=== PATIENT | female | born 1935 | race African-American/Black ===

== ENCOUNTER 2021-09-23 14:27 | Inpatient (IN) | payer MEDICARE, BC ==
[~2021-09-23] VITALS: Ht 157.5 cm; Wt 47.1 kg
[~2021-09-23 14:27] MED LIST: APIX2.5T MT; DILT30TA38 MT; LEVO250T43 MT
[2021-09-23 15:23] LABS: BASOPHILS % 0.7 % (0.0-2.0); EOSINOPHILS % 2.9 % (0.0-5.0); HEMOGLOBIN. 10.8 g/dL (12.0-16.0); LYMPHOCYTES % 10.9 % (20.0-50.0); MEAN CORPUSCULAR HEMOGLOBIN 32.1 pg (28.0-32.0); MEAN CORPUSCULAR VOLUME 95.5 fL (81.0-99.0); MEAN PLATELET VOLUME 9.9 fl (7.4-10.4); NEUTROPHILS % 75.5 % (40.0-76.0); PLATELET 206 x1000/uL (130-400); RED BLOOD CELL COUNT 3.36 mill/uL (4.2-5.4); RED CELL DISTRIBUTION WIDTH 14.9 % (11.6-14.6)
[2021-09-23 15:46] LABS: CHLORIDE 93 mEq/L (98-107)
[2021-09-23] MEDS ORDERED: ONDANSETRON HCL 4MG/2ML INJ IV PRN (21:45)
[2021-09-23] MEDS ORDERED: BISACODYL 10MG SUPP PR PRN (22:00)
[2021-09-23] MEDS ORDERED: BISACODYL 5MG TABLET PO PRN (22:00)
[2021-09-23] MEDS: DOCUSATE SODIUM 100MG CAPSULE PO SCH (22:48)
[2021-09-23] MEDS: ACETAMINOPHEN 325MG TABLET PO PRN (22:49)
[2021-09-23 23:30] VITALS: BP 130/87
[2021-09-24] VITALS (9 sets, daily range): BP systolic 115–139; BP diastolic 45–90
[2021-09-24] MEDS: DILTIAZEM HCL 30MG TABLET PO SCH ×4 (00:40→17:00)
[2021-09-24] MEDS: APIXABAN 2.5 MG TABLET PO SCH ×3 (00:40→17:00)
[2021-09-24] MEDS: DIPHENHYDRAMINE 25MG CAPSULE PO PRN ×3 (01:21→20:52)
[2021-09-24 02:59] LABS: HEPATITIS B SURFACE ANTIGEN NEGATIVE
[2021-09-24] MEDS: DOCUSATE SODIUM 100MG CAPSULE PO SCH ×2 (09:04→17:00)
[2021-09-24] MEDS: ACETAMINOPHEN 325MG TABLET PO PRN (09:05)
[2021-09-24 09:27] LABS: CREATINE KINASE MB FRACTION 2.5 ng/mL (0.5-3.6)
[2021-09-24] MEDS ORDERED: DEXTROSE 50% WATER 50ML SYRINGE IV PRN (21:15)
[2021-09-25] VITALS: BP 111/57
[2021-09-25] MEDS: ACETAMINOPHEN 325MG TABLET PO PRN ×2 (02:12→11:10)
[2021-09-25 04:00] VITALS: BP 128/80
[2021-09-25 06:18] LABS: HEMATOCRIT. 29.6 % (36.0-48.0); MEAN CORPUSCULAR VOLUME 94.4 fL (81.0-99.0); MEAN PLATELET VOLUME 9.8 fl (7.4-10.4); PLATELET 226 x1000/uL (130-400); RED BLOOD CELL COUNT 3.14 mill/uL (4.2-5.4); RED CELL DISTRIBUTION WIDTH 14.8 % (11.6-14.6)
[2021-09-25 06:22] LABS: INR 1.2; PROTHROMBIN TIME 12.5 sec (9.6-11.0)
[2021-09-25 06:43] LABS: CHLORIDE 95 mEq/L (98-107)
[2021-09-25] MEDS: INSULIN LISPRO 100 UNITS/ML SUBCUT SCH ×4 (07:30→21:00)
[2021-09-25] MEDS: BLOOD SUGAR DIAGNOSTIC STRIP TEST SCH ×4 (07:30→21:37)
[2021-09-25 08:00] VITALS: BP 128/76
[2021-09-25] MEDS: DILTIAZEM HCL 30MG TABLET PO SCH ×3 (08:58→17:54)
[2021-09-25] MEDS: DOCUSATE SODIUM 100MG CAPSULE PO SCH ×2 (08:59→17:00)
[2021-09-25] MEDS: APIXABAN 2.5 MG TABLET PO SCH ×2 (08:59→17:00)
[2021-09-25 12:00] VITALS: BP 112/70
[2021-09-25] MEDS ORDERED: CEFAZOLIN 1000MG PREMIX 50 ML IV NR (12:00)
[2021-09-25 12:54] LABS: PLATELET ESTIMATE NORMAL
[2021-09-25 16:00] VITALS: BP 115/57
[2021-09-25 20:00] VITALS: BP 121/50
[2021-09-26] VITALS (7 sets, daily range): BP systolic 122–144; BP diastolic 69–88
[2021-09-26] MEDS: DIPHENHYDRAMINE 25MG CAPSULE PO PRN (00:16)
[2021-09-26 06:19] LABS: BASOPHILS % 0.5 % (0.0-2.0); EOSINOPHILS % 2.3 % (0.0-5.0); HEMATOCRIT. 32.8 % (36.0-48.0); LYMPHOCYTES % 11.8 % (20.0-50.0); MEAN CORPUSCULAR HEMOGLOBIN 32.1 pg (28.0-32.0); MEAN CORPUSCULAR VOLUME 96.1 fL (81.0-99.0); MEAN PLATELET VOLUME 9.5 fl (7.4-10.4); MONOCYTES % 10.1 % (2.0-8.0); NEUTROPHILS % 75.3 % (40.0-76.0); PLATELET 235 x1000/uL (130-400); RED BLOOD CELL COUNT 3.41 mill/uL (4.2-5.4); RED CELL DISTRIBUTION WIDTH 14.6 % (11.6-14.6)
[2021-09-26 06:20] LABS: INR 1.2; PROTHROMBIN TIME 12.5 sec (9.6-11.0)
[2021-09-26 07:27] LABS: CHLORIDE 94 mEq/L (98-107)
[2021-09-26] MEDS: BLOOD SUGAR DIAGNOSTIC STRIP TEST SCH ×4 (07:30→21:09)
[2021-09-26] MEDS: INSULIN LISPRO 100 UNITS/ML SUBCUT SCH ×4 (08:00→21:00)
[2021-09-26] MEDS ORDERED: LIDOCAINE HCL/PF 1% 10 MG/ML 5ML VIAL ONE (08:27)
[2021-09-26] MEDS: APIXABAN 2.5 MG TABLET PO SCH ×2 (09:00→17:00)
[2021-09-26] MEDS: DOCUSATE SODIUM 100MG CAPSULE PO SCH ×2 (09:00→17:00)
[2021-09-26] MEDS: DILTIAZEM HCL 30MG TABLET PO SCH ×3 (09:00→17:00)
[2021-09-26] MEDS: DEXT 5%/0.45% NACL 1000ML 1,000 ML IV SCH (20:58)
[2021-09-27] VITALS: BP 135/90
[2021-09-27 04:00] VITALS: BP 134/76
[2021-09-27] MEDS: DIPHENHYDRAMINE 25MG CAPSULE PO PRN (04:55)
[2021-09-27 06:31] LABS: HEMATOCRIT 32.3 % (36.0-48.0); HEMOGLOBIN 10.9 g/dL (12.0-16.0); MEAN CORPUSCULAR HEMOGLOBIN 32.1 pg (28.0-32.0); MEAN CORPUSCULAR VOLUME 94.8 fL (81.0-99.0); PLATELET 244 x1000/uL (130-400); RED BLOOD CELL COUNT 3.41 mill/uL (4.2-5.4); RED CELL DISTRIBUTION WIDTH 14.6 % (11.6-14.6)
[2021-09-27] MEDS: BLOOD SUGAR DIAGNOSTIC STRIP TEST SCH ×4 (06:32→20:52)
[2021-09-27 07:30] LABS: CHLORIDE 95 mEq/L (98-107)
[2021-09-27] MEDS: INSULIN LISPRO 100 UNITS/ML SUBCUT SCH ×4 (07:50→20:52)
[2021-09-27 08:00] VITALS: BP 135/72
[2021-09-27] MEDS: DOCUSATE SODIUM 100MG CAPSULE PO SCH ×2 (09:00→17:00)
[2021-09-27] MEDS: APIXABAN 2.5 MG TABLET PO SCH ×2 (09:00→17:00)
[2021-09-27] MEDS: DILTIAZEM HCL 30MG TABLET PO SCH ×3 (09:00→17:00)
[2021-09-27 12:00] VITALS: BP 125/72
[2021-09-27 16:00] VITALS: BP 159/88
[2021-09-27] MEDS: DIPHENHYDRAMINE 50MG/ML VIAL IV PRN (18:05)
[2021-09-27 20:00] VITALS: BP 138/69
[2021-09-27] MEDS: DEXT 5%/0.45% NACL 1000ML 1,000 ML IV SCH (20:01)
[2021-09-28] VITALS: BP 102/65
[2021-09-28] MEDS: DIPHENHYDRAMINE 50MG/ML VIAL IV PRN ×2 (00:52→10:40)
[2021-09-28 04:00] VITALS: BP 157/99
[2021-09-28] MEDS: DEXT 5%/0.45% NACL 1000ML 1,000 ML IV SCH ×2 (05:19→21:49)
[2021-09-28] MEDS: BLOOD SUGAR DIAGNOSTIC STRIP TEST SCH ×3 (06:20→20:10)
[2021-09-28] MEDS: INSULIN LISPRO 100 UNITS/ML SUBCUT SCH ×3 (07:50→20:10)
[2021-09-28 08:00] VITALS: BP 139/170
[2021-09-28] MEDS: DOCUSATE SODIUM 100MG CAPSULE PO SCH (08:03)
[2021-09-28] MEDS: APIXABAN 2.5 MG TABLET PO SCH ×2 (09:00→18:25)
[2021-09-28] MEDS: DILTIAZEM HCL 30MG TABLET PO SCH ×5 (09:00→18:25)
[2021-09-28 12:00] VITALS: BP 146/4
[2021-09-28] MEDS ORDERED: INSLIS SUBCUT (15:14)
[2021-09-28] MEDS ORDERED: DIATR MEGLU/DIATRIZOATE SOLN 30ML ONE (15:24)
[2021-09-28 16:00] VITALS: BP 176/84
[2021-09-28 20:00] VITALS: BP 109/70
[2021-09-29] VITALS: BP 155/72
[2021-09-29 06:28] LABS: HEPATITIS B SURFACE ANTIGEN NEGATIVE
[2021-09-29] MEDS: DILTIAZEM HCL 30MG TABLET PO SCH ×3 (09:00→16:07)
[2021-09-29] MEDS: APIXABAN 2.5 MG TABLET PO SCH ×2 (09:00→16:08)
[2021-09-29] MEDS: DOCUSATE SODIUM 100MG CAPSULE PO SCH ×2 (09:00→16:08)
[2021-09-29 12:30] VITALS: BP 156/81
[2021-09-29] MEDS: INSULIN LISPRO 100 UNITS/ML SUBCUT SCH ×3 (12:50→20:49)
[2021-09-29] MEDS: BLOOD SUGAR DIAGNOSTIC STRIP TEST SCH ×3 (12:59→20:49)
[2021-09-29] MEDS: DEXT 5%/0.45% NACL 1000ML 1,000 ML IV SCH (16:08)
[2021-09-29 16:15] VITALS: BP 156/57
[2021-09-29] MEDS: DOCUSATE SODIUM SUGAR FREE 100MG/10ML UDC GT SCH (17:30)
[2021-09-29 19:45] VITALS: BP 116/66
[2021-09-29] MEDS ORDERED: SENNOSIDES 8.6MG TABLET GT PRN (21:00)
[2021-09-30] VITALS: BP 141/69
[2021-09-30] MEDS: DIPHENHYDRAMINE 50MG/ML VIAL IV PRN ×2 (02:51→11:42)
[2021-09-30 03:30] VITALS: BP 131/72
[2021-09-30] MEDS: BLOOD SUGAR DIAGNOSTIC STRIP TEST SCH ×2 (06:30→13:15)
[2021-09-30] MEDS: INSULIN LISPRO 100 UNITS/ML SUBCUT SCH ×2 (07:50→12:50)
[2021-09-30 08:35] VITALS: BP 149/74
[2021-09-30] MEDS: DOCUSATE SODIUM 100MG CAPSULE PO SCH (09:00)
[2021-09-30] MEDS: DILTIAZEM HCL 30MG TABLET PO SCH ×2 (09:14→13:03)
[2021-09-30] MEDS: DEXT 5%/0.45% NACL 1000ML 1,000 ML IV SCH (09:15)
[2021-09-30] MEDS: APIXABAN 2.5 MG TABLET PO SCH (09:15)
[2021-09-30] MEDS: DOCUSATE SODIUM SUGAR FREE 100MG/10ML UDC GT SCH (09:29)
[2021-09-30 12:00] VITALS: BP 146/64
[2021-09-30] MEDS ORDERED: LACTULOSE 20G/30ML UDC GT NR (12:45)
[2021-09-30] MEDS ORDERED: METOCLOPRAMIDE HCL 10MG/2ML VIAL IV SCH (13:00)
[2021-09-30 15:16] VITALS: BP 139/67
[2021-09-30 15:52] VITALS: BP 139/67
[2021-09-30] MEDS ORDERED: METO5SOL19 PO (15:55)
[2021-09-30] MEDS ORDERED: METO5TAB86 PO (15:59)
[2021-09-30] MEDS ORDERED: METO5TAB86 GT (16:04)
== END 2021-09-30 17:51 | DRG 291 ==
LOC: ER 14:27 → EDBEDREQ 15:34 → 5EST 18:21 → EDBEDREQTM 18:26 → EDBEDREQ 18:26 → ENRESERV 22:19 → 6WST 09-26 12:01
PROVIDERS: ADMIT Family Medicine; ATTEND Family Medicine
PROC: 5A1D70Z Performance of Urinary Filtration, Intermittent, Less than 6 Hours Per Day (ICD-10-PCS; 2021-09-24)
PROC: 02HV33Z Insertion of Infusion Device into Superior Vena Cava, Percutaneous Approach (ICD-10-PCS; principal; 2021-09-26)
PROC: B548ZZA Ultrasonography of Superior Vena Cava, Guidance (ICD-10-PCS; 2021-09-26)
PROC: 0DP6XUZ Removal of Feeding Device from Stomach, External Approach (ICD-10-PCS; 2021-09-30)
PROC: 0DH63UZ Insertion of Feeding Device into Stomach, Percutaneous Approach (ICD-10-PCS; 2021-09-30)
DX: I13.2 Hypertensive heart and chronic kidney disease with heart failure and with stage 5 chronic kidney disease, or end stage renal disease (principal); I50.33 Acute on chronic diastolic (congestive) heart failure; N18.6 End stage renal disease; E46 Unspecified protein-calorie malnutrition; I47.1 Supraventricular tachycardia; Z68.1 Body mass index [BMI] 19.9 or less, adult; I48.20 Chronic atrial fibrillation, unspecified; E87.1 Hypo-osmolality and hyponatremia; T86.12 Kidney transplant failure; K22.0 Achalasia of cardia; R62.7 Adult failure to thrive; D63.1 Anemia in chronic kidney disease; K70.31 Alcoholic cirrhosis of liver with ascites; R13.12 Dysphagia, oropharyngeal phase; E11.22 Type 2 diabetes mellitus with diabetic chronic kidney disease; I25.10 Atherosclerotic heart disease of native coronary artery without angina pectoris; K31.89 Other diseases of stomach and duodenum; E55.9 Vitamin D deficiency, unspecified; R79.89 Other specified abnormal findings of blood chemistry; F32.A Depression, unspecified; E78.5 Hyperlipidemia, unspecified; F03.90 Unspecified dementia, unspecified severity, without behavioral disturbance, psychotic disturbance, mood disturbance, and anxiety; Z20.822 Contact with and (suspected) exposure to COVID-19; Z90.710 Acquired absence of both cervix and uterus; Z79.01 Long term (current) use of anticoagulants; Z88.0 Allergy status to penicillin; Z88.8 Allergy status to other drugs, medicaments and biological substances; Z79.899 Other long term (current) drug therapy; Z99.2 Dependence on renal dialysis; Z91.15 Patient's noncompliance with renal dialysis; Z90.49 Acquired absence of other specified parts of digestive tract; Z93.1 Gastrostomy status
CPT/HCPCS: 36415; 36573; 71045; 74018; 76705; 80053; 82550; 82553; 82962; 83036; 83880; 84484; 85025; 85027; 86705; 86709; 86803; 87340; 87426; 92610; 93005; 99291; C1725; C1893; J1200; J2765; J3490; Q0163; Q9963

== ENCOUNTER 2021-10-18 13:58 | Inpatient (IN) | payer MEDICARE, BC ==
[~2021-10-18] VITALS: Ht 167.6 cm; Wt 50.3 kg
[~2021-10-18 13:58] MED LIST changes: +INSLIS SUBCUT; -LEVO250T43 MT; +METO5TAB86 GT
[2021-10-18] MEDS ORDERED: SODIUM CHLORIDE 0.9% 500 ML IV ONE (14:30)
[2021-10-18 14:55] LABS: BASOPHILS % 0.4 % (0.0-2.0); EOSINOPHILS % 1.2 % (0.0-5.0); HEMOGLOBIN. 11.5 g/dL (12.0-16.0); LYMPHOCYTES % 7.4 % (20.0-50.0); MEAN CORPUSCULAR HEMOGLOBIN 30.8 pg (28.0-32.0); MEAN PLATELET VOLUME 9.2 fl (7.4-10.4); MONOCYTES % 8.2 % (2.0-8.0); NEUTROPHILS % 82.8 % (40.0-76.0); PLATELET 269 x1000/uL (130-400); RED BLOOD CELL COUNT 3.72 mill/uL (4.2-5.4); RED CELL DISTRIBUTION WIDTH 14.3 % (11.6-14.6)
[2021-10-18] MEDS ORDERED: MORPHINE SULFATE 2 MG/ML CPJ (NOT FOR IM USE) IV ONE (15:00)
[2021-10-18 15:04] LABS: CHLORIDE 79 mEq/L (98-107)
[2021-10-18 15:06] LABS: INR 1.2; PROTHROMBIN TIME 12.7 sec (9.6-11.0)
[2021-10-18 15:29] LABS: CLARITY URINE CLOUDY (CLEAR); COLOR URINE DARK YELLOW (YELLOW); KETONES URINE NEGATIVE (NEGATIVE); LEUKOCYTE ESTERASE URINE 3+ (NEGATIVE); NITRITE URINE NEGATIVE (NEGATIVE); OCCULT BLOOD URINE TRACE (NEGATIVE); PROTEIN URINE 3+ (NEGATIVE); SPECIFIC GRAVITY URINE 1.016 (1.005-1.030); UROBILINOGEN URINE 0.2 E.U./dL (0.2-1.0)
[2021-10-18] MEDS ORDERED: LEVOFLOXACIN 500MG PREMIX 100 ML IV NR (15:30)
[2021-10-18] MEDS ORDERED: SODIUM POLYSTYRENE SULFONATE 15 G/60 ML BOT PO NR (16:15)
[2021-10-18] MEDS ORDERED: DEXTROSE 50% WATER 50ML SYRINGE IV NR (16:15)
[2021-10-18] MEDS ORDERED: INSULIN REGULAR (HUMULIN R) 300UNITS/3ML VIAL IV NR (16:15)
[2021-10-18] MEDS ORDERED: ACETAMINOPHEN 650MG/20.3ML UDC GT NR (17:45)
[2021-10-18] MEDS ORDERED: ACETAMINOPHEN 325MG TABLET PO ONE (17:45)
[2021-10-18] MEDS ORDERED: CLONIDINE 0.1MG TABLET PO PRN (19:30)
[2021-10-18] MEDS ORDERED: ACETAMINOPHEN 650MG/20.3ML UDC GT PRN (19:30)
[2021-10-18] MEDS ORDERED: DILTIAZEM HCL 30MG TABLET GT SCH (19:30)
[2021-10-18] MEDS ORDERED: ONDANSETRON HCL 4MG/2ML INJ IV PRN (19:30)
[2021-10-18] MEDS ORDERED: ONDANSETRON HCL 4MG TABLET PO NR (19:30)
[2021-10-18] MEDS ORDERED: CEFTRIAXONE 1 G PREMIX 50 ML IV NR (20:00)
[2021-10-18] MEDS: METOCLOPRAMIDE HCL 5MG TABLET GT SCH (20:30)
[2021-10-18] MEDS: MORPHINE SULFATE 2 MG/ML CPJ (NOT FOR IM USE) IV PRN (21:01)
[2021-10-18 23:27] VITALS: BP 133/70
[2021-10-19] VITALS: BP 133/70
[2021-10-19] MEDS ORDERED: DIPHENHYDRAMINE 12.5MG/5ML UDC GT PRN (01:45)
[2021-10-19 01:54] LABS: CREATINE KINASE MB FRACTION 2.1 ng/mL (0.5-3.6)
[2021-10-19] MEDS: MORPHINE SULFATE 2 MG/ML CPJ (NOT FOR IM USE) IV PRN (03:58)
[2021-10-19 04:00] VITALS: BP 135/89
[2021-10-19 06:43] LABS: BASOPHILS % 0.6 % (0.0-2.0); EOSINOPHILS % 3.1 % (0.0-5.0); HEMATOCRIT. 30.5 % (36.0-48.0); HEMOGLOBIN. 10.1 g/dL (12.0-16.0); LYMPHOCYTES % 8.1 % (20.0-50.0); MEAN CORPUSCULAR VOLUME 93.8 fL (81.0-99.0); MONOCYTES % 10.9 % (2.0-8.0); NEUTROPHILS % 77.3 % (40.0-76.0); PLATELET 255 x1000/uL (130-400); RED BLOOD CELL COUNT 3.25 mill/uL (4.2-5.4); RED CELL DISTRIBUTION WIDTH 14.3 % (11.6-14.6)
[2021-10-19 06:44] LABS: CHLORIDE 82 mEq/L (98-107)
[2021-10-19 06:56] LABS: CREATINE KINASE 55 IU/L (26-192); CREATINE KINASE MB FRACTION 2.5 ng/mL (0.5-3.6); HDL CHOLESTEROL 34 mg/dL (40-59); LDL CHOLESTEROL 41 mg/dL (5-100)
[2021-10-19 08:00] VITALS: BP 132/67
[2021-10-19] MEDS: METOCLOPRAMIDE HCL 5MG TABLET GT SCH ×3 (10:06→17:00)
[2021-10-19] MEDS: APIXABAN 2.5 MG TABLET GT SCH ×2 (10:06→17:00)
[2021-10-19] MEDS: METOPROLOL TARTRATE 25MG TABLET PO SCH ×2 (10:07→21:14)
[2021-10-19 12:00] VITALS: BP 131/65
[2021-10-19] MEDS ORDERED: NALOXONE HCL 0.4MG/ML VIAL IV PRN (13:30)
[2021-10-19 16:00] VITALS: BP 110/67
[2021-10-19 20:00] VITALS: BP 122/62
[2021-10-19] MEDS: CEFTRIAXONE 1,000 MG in DEXTROSE 5% WATER 50 ML IV SCH (21:14)
[2021-10-20] VITALS: BP 105/65
[2021-10-20] MEDS: MORPHINE SULFATE 2 MG/ML CPJ (NOT FOR IM USE) IV PRN ×2 (01:34→21:50)
[2021-10-20] MEDS: DIPHENHYDRAMINE 12.5MG/5ML UDC GT PRN ×2 (02:35→19:02)
[2021-10-20 04:00] VITALS: BP 106/57
[2021-10-20 08:00] VITALS: BP 141/81
[2021-10-20] MEDS: METOPROLOL TARTRATE 25MG TABLET PO SCH ×2 (09:53→21:00)
[2021-10-20] MEDS: METOCLOPRAMIDE HCL 5MG TABLET GT SCH ×3 (09:53→19:02)
[2021-10-20 12:00] VITALS: BP 117/63
[2021-10-20] MEDS ORDERED: APIXABAN 2.5 MG TABLET PO SCH (13:00)
[2021-10-20] MEDS: LORATADINE 10MG TABLET PO SCH (13:00)
[2021-10-20] MEDS: AMMONIUM LACTATE 12% LOTION 240ML TOP SCH (14:57)
[2021-10-20 16:00] VITALS: BP 126/57
[2021-10-20 17:55] LABS: BASOPHILS % 0.6 % (0.0-2.0); EOSINOPHILS % 3.7 % (0.0-5.0); HEMATOCRIT. 34.7 % (36.0-48.0); HEMOGLOBIN. 10.9 g/dL (12.0-16.0); LYMPHOCYTES % 8.4 % (20.0-50.0); MEAN CORPUSCULAR HEMOGLOBIN 30.8 pg (28.0-32.0); MEAN PLATELET VOLUME 8.6 fl (7.4-10.4); NEUTROPHILS % 76.3 % (40.0-76.0); PLATELET 267 x1000/uL (130-400); RED BLOOD CELL COUNT 3.54 mill/uL (4.2-5.4); RED CELL DISTRIBUTION WIDTH 15.2 % (11.6-14.6)
[2021-10-20 18:40] LABS: CHLORIDE 89 mEq/L (98-107)
[2021-10-20 20:00] VITALS: BP 119/56
[2021-10-20] MEDS: CEFTRIAXONE 1,000 MG in DEXTROSE 5% WATER 50 ML IV SCH (20:55)
[2021-10-21] VITALS: BP 110/58
[2021-10-21] MEDS: DIPHENHYDRAMINE 12.5MG/5ML UDC GT PRN ×2 (00:29→14:55)
[2021-10-21] MEDS: MORPHINE SULFATE 2 MG/ML CPJ (NOT FOR IM USE) IV PRN ×2 (02:35→21:24)
[2021-10-21 04:00] VITALS: BP 119/54
[2021-10-21 06:51] LABS: BASOPHILS % 0.8 % (0.0-2.0); EOSINOPHILS % 3.9 % (0.0-5.0); HEMATOCRIT. 31.8 % (36.0-48.0); HEMOGLOBIN. 10.3 g/dL (12.0-16.0); LYMPHOCYTES % 9.4 % (20.0-50.0); MEAN CORPUSCULAR HEMOGLOBIN 31.2 pg (28.0-32.0); MEAN PLATELET VOLUME 8.5 fl (7.4-10.4); MONOCYTES % 9.8 % (2.0-8.0); NEUTROPHILS % 76.1 % (40.0-76.0); PLATELET 291 x1000/uL (130-400); RED BLOOD CELL COUNT 3.31 mill/uL (4.2-5.4); RED CELL DISTRIBUTION WIDTH 14.6 % (11.6-14.6)
[2021-10-21 08:00] VITALS: BP 121/56
[2021-10-21] MEDS: LORATADINE 10MG TABLET PO SCH (08:53)
[2021-10-21] MEDS: METOPROLOL TARTRATE 25MG TABLET PO SCH ×2 (08:54→21:00)
[2021-10-21] MEDS: METOCLOPRAMIDE HCL 5MG TABLET GT SCH ×3 (08:54→16:10)
[2021-10-21] MEDS: AMMONIUM LACTATE 12% LOTION 240ML TOP SCH ×2 (08:55→16:10)
[2021-10-21 11:48] VITALS: BP 121/73
[2021-10-21 16:00] VITALS: BP 101/63
[2021-10-21 20:00] VITALS: BP 116/70
[2021-10-21] MEDS: SODIUM CHLORIDE 0.45% 1,000 ML IV SCH (21:23)
[2021-10-21] MEDS: CEFTRIAXONE 1,000 MG in DEXTROSE 5% WATER 50 ML IV SCH (21:23)
[2021-10-22] VITALS: BP 128/71
[2021-10-22 04:00] VITALS: BP 130/68
[2021-10-22 06:43] LABS: BASOPHILS % 0.6 % (0.0-2.0); EOSINOPHILS % 2.8 % (0.0-5.0); HEMATOCRIT. 33.1 % (36.0-48.0); HEMOGLOBIN. 10.6 g/dL (12.0-16.0); LYMPHOCYTES % 9.8 % (20.0-50.0); MEAN CORPUSCULAR VOLUME 96.4 fL (81.0-99.0); MEAN PLATELET VOLUME 8.1 fl (7.4-10.4); NEUTROPHILS % 78.8 % (40.0-76.0); PLATELET 335 x1000/uL (130-400); RED BLOOD CELL COUNT 3.43 mill/uL (4.2-5.4); RED CELL DISTRIBUTION WIDTH 15.2 % (11.6-14.6)
[2021-10-22 06:55] LABS: INR 1.2; PROTHROMBIN TIME 12.5 sec (9.6-11.0)
[2021-10-22] MEDS ORDERED: ALBUMIN HUMAN 25GM/100ML (25%) IV SCH (07:00)
[2021-10-22 08:00] VITALS: BP 112/70
[2021-10-22] MEDS: AMMONIUM LACTATE 12% LOTION 240ML TOP SCH ×2 (09:12→16:32)
[2021-10-22] MEDS ORDERED: LIDOCAINE HCL 1% 30ML VIAL (10MG/ML) ONE (10:21)
[2021-10-22] MEDS: LORATADINE 10MG TABLET PO SCH (12:59)
[2021-10-22] MEDS: METOCLOPRAMIDE HCL 5MG TABLET GT SCH ×3 (12:59→16:32)
[2021-10-22] MEDS: METOPROLOL TARTRATE 25MG TABLET PO SCH ×2 (13:00→21:41)
[2021-10-22 16:00] VITALS: BP 125/62
[2021-10-22] MEDS ORDERED: FOLI0.8T23 PO (16:44)
[2021-10-22] MEDS ORDERED: MIRT-89 PO (16:44)
[2021-10-22] MEDS ORDERED: CARV3.1242 PO (16:44)
[2021-10-22] MEDS: DIPHENHYDRAMINE 12.5MG/5ML UDC GT PRN (17:44)
[2021-10-22 20:00] VITALS: BP 130/64
[2021-10-22] MEDS: SODIUM CHLORIDE 0.45% 1,000 ML IV SCH (20:45)
[2021-10-22] MEDS: CEFTRIAXONE 1,000 MG in DEXTROSE 5% WATER 50 ML IV SCH (21:41)
[2021-10-22] MEDS: MORPHINE SULFATE 2 MG/ML CPJ (NOT FOR IM USE) IV PRN (21:42)
[2021-10-23] VITALS: BP 122/75
[2021-10-23 04:00] VITALS: BP 118/55
[2021-10-23 06:34] LABS: BASOPHILS % 0.8 % (0.0-2.0); EOSINOPHILS % 2.1 % (0.0-5.0); HEMATOCRIT. 30.9 % (36.0-48.0); HEMOGLOBIN. 10.1 g/dL (12.0-16.0); LYMPHOCYTES % 9.3 % (20.0-50.0); MEAN CORPUSCULAR HEMOGLOBIN 30.8 pg (28.0-32.0); MEAN CORPUSCULAR VOLUME 94.6 fL (81.0-99.0); MEAN PLATELET VOLUME 8.4 fl (7.4-10.4); MONOCYTES % 11.9 % (2.0-8.0); NEUTROPHILS % 75.9 % (40.0-76.0); PLATELET 272 x1000/uL (130-400); RED BLOOD CELL COUNT 3.27 mill/uL (4.2-5.4); RED CELL DISTRIBUTION WIDTH 14.8 % (11.6-14.6)
[2021-10-23 08:00] VITALS: BP 116/67
[2021-10-23] MEDS: LORATADINE 10MG TABLET PO SCH (08:04)
[2021-10-23] MEDS: AMMONIUM LACTATE 12% LOTION 240ML TOP SCH ×2 (08:04→16:31)
[2021-10-23] MEDS: METOCLOPRAMIDE HCL 5MG TABLET GT SCH ×3 (08:04→16:33)
[2021-10-23] MEDS: METOPROLOL TARTRATE 25MG TABLET PO SCH ×2 (08:05→21:02)
[2021-10-23] MEDS: APIXABAN 2.5 MG TABLET GT SCH ×3 (09:00→16:33)
[2021-10-23] MEDS: DIPHENHYDRAMINE 12.5MG/5ML UDC GT PRN ×2 (10:07→21:08)
[2021-10-23 12:00] VITALS: BP 132/55
[2021-10-23 16:00] VITALS: BP 157/82
[2021-10-23] MEDS: SODIUM CHLORIDE 0.45% 1,000 ML IV SCH (17:43)
[2021-10-23 20:00] VITALS: BP 168/70
[2021-10-23] MEDS: CEFTRIAXONE 1,000 MG in DEXTROSE 5% WATER 50 ML IV SCH (20:49)
[2021-10-23 21:20] LABS: HEPATITIS B SURFACE ANTIGEN NEGATIVE
[2021-10-23] MEDS ORDERED: DIPHENHYDRAMINE 50MG/ML VIAL IV NR (23:15)
[2021-10-24] VITALS: BP 147/69
[2021-10-24] MEDS ORDERED: LORAZEPAM 2MG/ML CPJ IV PRN (00:09)
[2021-10-24] MEDS ORDERED: ZOLPIDEM TARTRATE 5MG TABLET PO PRN (00:15)
[2021-10-24 04:00] VITALS: BP 138/68
[2021-10-24 06:07] LABS: INR 1.3; PROTHROMBIN TIME 13.6 sec (9.6-11.0)
[2021-10-24 06:25] LABS: BASOPHILS % 0.9 % (0.0-2.0); EOSINOPHILS % 2.6 % (0.0-5.0); HEMATOCRIT. 31.1 % (36.0-48.0); LYMPHOCYTES % 10.7 % (20.0-50.0); MEAN CORPUSCULAR HEMOGLOBIN 30.5 pg (28.0-32.0); MEAN CORPUSCULAR VOLUME 94.5 fL (81.0-99.0); MEAN PLATELET VOLUME 8.6 fl (7.4-10.4); MONOCYTES % 11.3 % (2.0-8.0); NEUTROPHILS % 74.5 % (40.0-76.0); PLATELET 273 x1000/uL (130-400); RED CELL DISTRIBUTION WIDTH 14.6 % (11.6-14.6)
[2021-10-24 08:00] VITALS: BP 121/58
[2021-10-24] MEDS: METOCLOPRAMIDE HCL 5MG TABLET GT SCH ×3 (09:29→17:35)
[2021-10-24] MEDS: METOPROLOL TARTRATE 25MG TABLET PO SCH ×2 (09:29→21:03)
[2021-10-24] MEDS: APIXABAN 2.5 MG TABLET GT SCH ×2 (09:30→17:35)
[2021-10-24] MEDS: LORATADINE 10MG TABLET PO SCH (09:30)
[2021-10-24] MEDS: AMMONIUM LACTATE 12% LOTION 240ML TOP SCH ×2 (09:30→17:35)
[2021-10-24 09:45] LABS: CHLORIDE 93 mEq/L (98-107)
[2021-10-24 12:00] VITALS: BP 118/67
[2021-10-24 16:00] VITALS: BP 105/55
[2021-10-24] MEDS ORDERED: METO25TA6 PO (19:54)
[2021-10-24 20:00] VITALS: BP 149/66
[2021-10-24] MEDS: SODIUM CHLORIDE 0.45% 1,000 ML IV SCH (20:49)
[2021-10-25] VITALS (7 sets, daily range): BP systolic 123–149; BP diastolic 48–69
[2021-10-25 06:36] LABS: BASOPHILS % 0.8 % (0.0-2.0); EOSINOPHILS % 2.7 % (0.0-5.0); HEMOGLOBIN. 11.4 g/dL (12.0-16.0); LYMPHOCYTES % 8.8 % (20.0-50.0); MEAN CORPUSCULAR HEMOGLOBIN 30.9 pg (28.0-32.0); MEAN PLATELET VOLUME 8.4 fl (7.4-10.4); MONOCYTES % 8.2 % (2.0-8.0); NEUTROPHILS % 79.5 % (40.0-76.0); PLATELET 340 x1000/uL (130-400); RED BLOOD CELL COUNT 3.69 mill/uL (4.2-5.4); RED CELL DISTRIBUTION WIDTH 14.5 % (11.6-14.6)
[2021-10-25] MEDS: METOCLOPRAMIDE HCL 5MG TABLET GT SCH ×3 (10:08→17:51)
[2021-10-25] MEDS: METOPROLOL TARTRATE 25MG TABLET PO SCH ×2 (10:08→20:49)
[2021-10-25] MEDS: LORATADINE 10MG TABLET PO SCH (10:09)
[2021-10-25] MEDS: APIXABAN 2.5 MG TABLET GT SCH ×2 (10:09→17:51)
[2021-10-25] MEDS: AMMONIUM LACTATE 12% LOTION 240ML TOP SCH ×2 (10:17→17:51)
[2021-10-26 10:01] LABS: VITAMIN B12 SERUM > 2000.0 pg/mL (211-911)
== END 2021-10-25 21:25 | DRG 291 ==
LOC: ER 13:58 → 7WST 17:27 → EDBEDREQ 17:31 → EDBEDREQTM 17:31 → ENRESERV 19:32 → CANRESERV 19:32 → ENRESERV 21:32
PROVIDERS: ADMIT Family Medicine; ATTEND Family Medicine
PROC: 5A1D70Z Performance of Urinary Filtration, Intermittent, Less than 6 Hours Per Day (ICD-10-PCS; 2021-10-19)
PROC: 5A1D70Z Performance of Urinary Filtration, Intermittent, Less than 6 Hours Per Day (ICD-10-PCS; 2021-10-21)
PROC: 02HV33Z Insertion of Infusion Device into Superior Vena Cava, Percutaneous Approach (ICD-10-PCS; principal; 2021-10-22)
PROC: B5181ZA Fluoroscopy of Superior Vena Cava using Low Osmolar Contrast, Guidance (ICD-10-PCS; 2021-10-22)
PROC: B548ZZA Ultrasonography of Superior Vena Cava, Guidance (ICD-10-PCS; 2021-10-22)
PROC: 0W9G3ZZ Drainage of Peritoneal Cavity, Percutaneous Approach (ICD-10-PCS; 2021-10-22)
PROC: 5A1D70Z Performance of Urinary Filtration, Intermittent, Less than 6 Hours Per Day (ICD-10-PCS; 2021-10-24)
DX: I13.2 Hypertensive heart and chronic kidney disease with heart failure and with stage 5 chronic kidney disease, or end stage renal disease (principal); G92.8 Other toxic encephalopathy; I50.43 Acute on chronic combined systolic (congestive) and diastolic (congestive) heart failure; N18.6 End stage renal disease; R18.8 Other ascites; E44.0 Moderate protein-calorie malnutrition; I48.20 Chronic atrial fibrillation, unspecified; E87.1 Hypo-osmolality and hyponatremia; K56.609 Unspecified intestinal obstruction, unspecified as to partial versus complete obstruction; N39.0 Urinary tract infection, site not specified; Z68.1 Body mass index [BMI] 19.9 or less, adult; T86.12 Kidney transplant failure; Z20.822 Contact with and (suspected) exposure to COVID-19; K40.90 Unilateral inguinal hernia, without obstruction or gangrene, not specified as recurrent; I25.10 Atherosclerotic heart disease of native coronary artery without angina pectoris; E87.5 Hyperkalemia; K74.60 Unspecified cirrhosis of liver; L29.9 Pruritus, unspecified; E78.5 Hyperlipidemia, unspecified; K63.89 Other specified diseases of intestine; R13.10 Dysphagia, unspecified; E11.22 Type 2 diabetes mellitus with diabetic chronic kidney disease; R79.89 Other specified abnormal findings of blood chemistry; Z88.0 Allergy status to penicillin; Z88.8 Allergy status to other drugs, medicaments and biological substances; Z99.2 Dependence on renal dialysis; Z93.1 Gastrostomy status; Z79.899 Other long term (current) drug therapy; Z86.73 Personal history of transient ischemic attack (TIA), and cerebral infarction without residual deficits; Z90.49 Acquired absence of other specified parts of digestive tract; Z91.15 Patient's noncompliance with renal dialysis; Z79.01 Long term (current) use of anticoagulants
CPT/HCPCS: 36415; 36573; 49083; 71045; 74018; 74176; 76700; 80048; 80053; 80061; 81003; 82040; 82105; 82140; 82550; 82553; 82607; 82962; 83605; 83615; 83880; 84145; 84484; 85025; 86705; 86709; 86803; 87340; 87426; 92610; 93306; 99291; C1725; C1893; J0696; J1200; J1815; J1956; J2060; J2270; J3490; J7030; J7060; J8597; P9047; Q0162; Q0163; A4315

== ENCOUNTER 2021-10-30 11:52 | Inpatient (IN) | payer MEDICARE, BC ==
[~2021-10-30] VITALS: Ht 160 cm; Wt 54.4 kg
[~2021-10-30 11:52] MED LIST changes: +CARV3.1242 PO; +FOLI0.8T23 PO; +METO25TA6 PO; +MIRT-89 PO
[2021-10-30 13:49] LABS: BASOPHILS % 0.6 % (0.0-2.0); EOSINOPHILS % 2.4 % (0.0-5.0); HEMATOCRIT. 30.7 % (36.0-48.0); LYMPHOCYTES % 10.7 % (20.0-50.0); MEAN CORPUSCULAR HEMOGLOBIN 29.9 pg (28.0-32.0); MEAN PLATELET VOLUME 8.8 fl (7.4-10.4); MONOCYTES % 8.8 % (2.0-8.0); NEUTROPHILS % 77.5 % (40.0-76.0); PLATELET 298 x1000/uL (130-400); RED BLOOD CELL COUNT 3.34 mill/uL (4.2-5.4); RED CELL DISTRIBUTION WIDTH 14.9 % (11.6-14.6)
[2021-10-30 13:52] LABS: CHLORIDE 88 mEq/L (98-107)
[2021-10-30 15:26] LABS: HEPATITIS B SURFACE ANTIGEN NEGATIVE
[2021-10-30 17:14] LABS: CLARITY URINE TURBID (CLEAR); COLOR URINE DARK YELLOW (YELLOW); KETONES URINE NEGATIVE (NEGATIVE); LEUKOCYTE ESTERASE URINE 3+ (NEGATIVE); NITRITE URINE POSITIVE (NEGATIVE); OCCULT BLOOD URINE 3+ (NEGATIVE); PH URINE 8.5 (4.5-8.0); PROTEIN URINE 4+ (NEGATIVE); SPECIFIC GRAVITY URINE 1.016 (1.005-1.030); UROBILINOGEN URINE 0.2 E.U./dL (0.2-1.0)
[2021-10-31] MEDS: CARVEDILOL 3.125 MG TABLET PO SCH ×3 (01:00→17:55)
[2021-10-31] MEDS ORDERED: ONDANSETRON HCL 4MG/2ML INJ IV PRN (01:00)
[2021-10-31] MEDS: FOLIC ACID/VITAMIN B COMP W-C TABLET PO SCH ×2 (01:00→09:00)
[2021-10-31 04:00] VITALS: BP 152/92
[2021-10-31 08:00] VITALS: BP 106/71
[2021-10-31] MEDS: APIXABAN 2.5 MG TABLET GT SCH ×2 (09:00→17:55)
[2021-10-31 12:00] VITALS: BP 106/45
[2021-10-31 12:52] LABS: HEMATOCRIT. 30.8 % (36.0-48.0); HEMOGLOBIN. 10.4 g/dL (12.0-16.0); MEAN CORPUSCULAR HEMOGLOBIN 31.1 pg (28.0-32.0); MEAN CORPUSCULAR VOLUME 92.5 fL (81.0-99.0); MEAN PLATELET VOLUME 9.1 fl (7.4-10.4); PLATELET 307 x1000/uL (130-400); RED BLOOD CELL COUNT 3.34 mill/uL (4.2-5.4); RED CELL DISTRIBUTION WIDTH 15.1 % (11.6-14.6)
[2021-10-31 12:58] LABS: CHLORIDE 96 mEq/L (98-107)
[2021-10-31 13:25] LABS: PLATELET ESTIMATE NORMAL
[2021-10-31 20:00] VITALS: BP 167/78
[2021-10-31] MEDS ORDERED: DEXTROSE 50% WATER 50ML SYRINGE IV PRN (23:15)
[2021-11-01] VITALS: BP 145/69
[2021-11-01] MEDS: BLOOD SUGAR DIAGNOSTIC STRIP TEST SCH ×3 (07:20→17:20)
[2021-11-01] MEDS: INSULIN LISPRO 100 UNITS/ML SUBCUT SCH ×3 (07:50→17:26)
[2021-11-01 07:56] LABS: BASOPHILS % 0.8 % (0.0-2.0); EOSINOPHILS % 1.6 % (0.0-5.0); HEMATOCRIT. 31.7 % (36.0-48.0); HEMOGLOBIN. 10.6 g/dL (12.0-16.0); LYMPHOCYTES % 8.3 % (20.0-50.0); MEAN CORPUSCULAR VOLUME 92.5 fL (81.0-99.0); MEAN PLATELET VOLUME 8.7 fl (7.4-10.4); MONOCYTES % 11.5 % (2.0-8.0); NEUTROPHILS % 77.8 % (40.0-76.0); PLATELET 335 x1000/uL (130-400); RED BLOOD CELL COUNT 3.43 mill/uL (4.2-5.4)
[2021-11-01 08:00] VITALS: BP 129/77
[2021-11-01] MEDS: FOLIC ACID/VITAMIN B COMP W-C TABLET PO SCH (08:57)
[2021-11-01] MEDS: CARVEDILOL 3.125 MG TABLET PO SCH ×2 (08:58→17:20)
[2021-11-01] MEDS: APIXABAN 2.5 MG TABLET GT SCH ×2 (08:58→17:20)
[2021-11-01 12:00] VITALS: BP 107/50
[2021-11-01 16:00] VITALS: BP 131/71
[2021-11-01 16:49] VITALS: BP 107/50
== END 2021-11-01 20:05 | DRG 698 ==
LOC: ER 11:52 → MICUSO 15:29 → EDBEDREQTM 15:38 → EDBEDREQ 15:38 → EDBEDREQSVC 15:39 → 6EST 10-31 04:02
PROVIDERS: ADMIT Family Medicine; ATTEND Family Medicine
PROC: 5A1D70Z Performance of Urinary Filtration, Intermittent, Less than 6 Hours Per Day (ICD-10-PCS; 2021-10-30)
PROC: 5A1D70Z Performance of Urinary Filtration, Intermittent, Less than 6 Hours Per Day (ICD-10-PCS; 2021-10-31)
PROC: 5A1D70Z Performance of Urinary Filtration, Intermittent, Less than 6 Hours Per Day (ICD-10-PCS; principal; 2021-11-01)
DX: T86.12 Kidney transplant failure (principal); G92.8 Other toxic encephalopathy; J96.00 Acute respiratory failure, unspecified whether with hypoxia or hypercapnia; N18.6 End stage renal disease; E46 Unspecified protein-calorie malnutrition; E87.1 Hypo-osmolality and hyponatremia; I48.20 Chronic atrial fibrillation, unspecified; R18.8 Other ascites; I13.2 Hypertensive heart and chronic kidney disease with heart failure and with stage 5 chronic kidney disease, or end stage renal disease; E11.22 Type 2 diabetes mellitus with diabetic chronic kidney disease; F03.90 Unspecified dementia, unspecified severity, without behavioral disturbance, psychotic disturbance, mood disturbance, and anxiety; Y83.0 Surgical operation with transplant of whole organ as the cause of abnormal reaction of the patient, or of later complication, without mention of misadventure at the time of the procedure; K74.60 Unspecified cirrhosis of liver; E78.5 Hyperlipidemia, unspecified; G43.909 Migraine, unspecified, not intractable, without status migrainosus; G89.29 Other chronic pain; M54.9 Dorsalgia, unspecified; R13.10 Dysphagia, unspecified; R79.89 Other specified abnormal findings of blood chemistry; I25.10 Atherosclerotic heart disease of native coronary artery without angina pectoris; I50.9 Heart failure, unspecified; Z74.01 Bed confinement status; Z86.73 Personal history of transient ischemic attack (TIA), and cerebral infarction without residual deficits; Z99.2 Dependence on renal dialysis; Z68.21 Body mass index [BMI] 21.0-21.9, adult; Z88.0 Allergy status to penicillin; Z88.8 Allergy status to other drugs, medicaments and biological substances; Z93.1 Gastrostomy status; Y92.89 Other specified places as the place of occurrence of the external cause; N30.90 Cystitis, unspecified without hematuria
CPT/HCPCS: 36415; 71045; 80048; 80053; 81003; 82962; 83036; 83605; 85025; 86705; 86709; 86803; 87340; 93005; 99285; A4315

== ENCOUNTER 2021-11-12 15:48 | Inpatient (IN) | payer MEDICARE, BC ==
[~2021-11-12] VITALS: Ht 165.1 cm; Wt 55.3 kg
[~2021-11-12 15:48] MED LIST changes: -DILT30TA38 MT; -METO25TA6 PO; -METO5TAB86 GT
[2021-11-12 16:49] LABS: BASOPHILS % 0.9 % (0.0-2.0); EOSINOPHILS % 2.4 % (0.0-5.0); HEMATOCRIT. 34.5 % (36.0-48.0); HEMOGLOBIN. 11.6 g/dL (12.0-16.0); LYMPHOCYTES % 9.5 % (20.0-50.0); MEAN CORPUSCULAR HEMOGLOBIN 31.1 pg (28.0-32.0); MEAN CORPUSCULAR VOLUME 92.3 fL (81.0-99.0); MONOCYTES % 8.9 % (2.0-8.0); NEUTROPHILS % 78.3 % (40.0-76.0); PLATELET 175 x1000/uL (130-400); RED BLOOD CELL COUNT 3.74 mill/uL (4.2-5.4); RED CELL DISTRIBUTION WIDTH 15.6 % (11.6-14.6)
[2021-11-12] MEDS ORDERED: ZOLPIDEM TARTRATE 5MG TABLET PO ONE (21:00)
[2021-11-12] MEDS ORDERED: DIPHENHYDRAMINE 25MG CAPSULE PO ONE (22:45)
[2021-11-13] MEDS ORDERED: ONDANSETRON HCL 4MG/2ML INJ IV PRN (23:00)
[2021-11-14 00:52] LABS: BASOPHILS % 0.9 % (0.0-2.0); EOSINOPHILS % 0.7 % (0.0-5.0); HEMATOCRIT. 40.2 % (36.0-48.0); HEMOGLOBIN. 13.2 g/dL (12.0-16.0); LYMPHOCYTES % 14.1 % (20.0-50.0); MEAN CORPUSCULAR HEMOGLOBIN 30.6 pg (28.0-32.0); MEAN CORPUSCULAR VOLUME 93.3 fL (81.0-99.0); MEAN PLATELET VOLUME 9.2 fl (7.4-10.4); NEUTROPHILS % 75.3 % (40.0-76.0); PLATELET 295 x1000/uL (130-400); RED BLOOD CELL COUNT 4.31 mill/uL (4.2-5.4)
[2021-11-14 01:01] LABS: CHLORIDE 92 mEq/L (98-107)
[2021-11-14] MEDS: APIXABAN 2.5 MG TABLET PO SCH ×3 (02:23→17:18)
[2021-11-14 04:00] VITALS: BP 141/67
[2021-11-14] MEDS ORDERED: METO5TAB86 MT (07:00)
[2021-11-14] MEDS ORDERED: APIX5TAB MT (07:00)
[2021-11-14] MEDS ORDERED: SENN-257 PO (07:00)
[2021-11-14] MEDS ORDERED: DOCU-138 MT (07:00)
[2021-11-14] MEDS ORDERED: DIPH25CA83 PO (07:00)
[2021-11-14] MEDS ORDERED: ZOLP5TAB2 MT (07:00)
[2021-11-14] MEDS ORDERED: DILT120C88 MT (07:00)
[2021-11-14] MEDS ORDERED: TOPUD MT (07:00)
[2021-11-14 08:00] VITALS: BP 103/67
[2021-11-14] MEDS: FOLIC ACID/VITAMIN B COMP W-C TABLET PO SCH (08:33)
[2021-11-14] MEDS: CARVEDILOL 3.125 MG TABLET PO SCH ×2 (08:34→17:22)
[2021-11-14 12:00] VITALS: BP 116/64
[2021-11-14 16:00] VITALS: BP 121/58
[2021-11-14 20:00] VITALS: BP 120/52
[2021-11-14] MEDS ORDERED: SENNOSIDES 8.6MG TABLET PO PRN (21:30)
[2021-11-14] MEDS ORDERED: DIPHENHYDRAMINE 25MG CAPSULE PO PRN (21:30)
[2021-11-14] MEDS: DIPHENHYDRAMINE 12.5MG/5ML UDC PO PRN (22:30)
[2021-11-15] VITALS: BP 127/64
[2021-11-15] MEDS ORDERED: DIPHENHYDRAMINE 12.5MG/5ML UDC PO PRN (03:00)
[2021-11-15 04:00] VITALS: BP 131/59
[2021-11-15 08:00] VITALS: BP 124/65
[2021-11-15] MEDS ORDERED: DOCUSATE SODIUM 100MG CAPSULE PO SCH (09:00)
[2021-11-15] MEDS: DOCUSATE SODIUM SUGAR FREE 100MG/10ML UDC NG SCH (09:11)
[2021-11-15] MEDS: APIXABAN 2.5 MG TABLET PO SCH ×2 (09:11→16:43)
[2021-11-15] MEDS: FOLIC ACID/VITAMIN B COMP W-C TABLET PO SCH (09:11)
[2021-11-15] MEDS: CARVEDILOL 3.125 MG TABLET PO SCH ×2 (09:11→16:43)
[2021-11-15] MEDS: DIPHENHYDRAMINE 12.5MG/5ML UDC PO PRN ×2 (09:26→17:20)
[2021-11-15 12:00] VITALS: BP 131/61
[2021-11-15] MEDS: ACETAMINOPHEN 650MG/20.3ML UDC PO PRN (14:20)
[2021-11-15 16:00] VITALS: BP 107/49
[2021-11-15 20:00] VITALS: BP 106/54
[2021-11-16] VITALS: BP 141/43
[2021-11-16] MEDS: DIPHENHYDRAMINE 12.5MG/5ML UDC PO PRN (03:41)
[2021-11-16 04:00] VITALS: BP 115/73
[2021-11-16 08:00] VITALS: BP 120/60
[2021-11-16] MEDS: CARVEDILOL 3.125 MG TABLET PO SCH (08:03)
[2021-11-16] MEDS: ACETAMINOPHEN 650MG/20.3ML UDC PO PRN ×2 (08:03→09:26)
[2021-11-16] MEDS: FOLIC ACID/VITAMIN B COMP W-C TABLET PO SCH (08:03)
[2021-11-16] MEDS: APIXABAN 2.5 MG TABLET PO SCH (08:03)
[2021-11-16] MEDS: DOCUSATE SODIUM SUGAR FREE 100MG/10ML UDC NG SCH (08:03)
[2021-11-16 08:35] LABS: BASOPHILS % 0.6 % (0.0-2.0); EOSINOPHILS % 2.3 % (0.0-5.0); HEMATOCRIT. 31.7 % (36.0-48.0); HEMOGLOBIN. 10.5 g/dL (12.0-16.0); LYMPHOCYTES % 10.1 % (20.0-50.0); MEAN CORPUSCULAR HEMOGLOBIN 30.6 pg (28.0-32.0); MEAN CORPUSCULAR VOLUME 92.5 fL (81.0-99.0); MEAN PLATELET VOLUME 9.5 fl (7.4-10.4); MONOCYTES % 12.3 % (2.0-8.0); NEUTROPHILS % 74.7 % (40.0-76.0); PLATELET 245 x1000/uL (130-400); RED BLOOD CELL COUNT 3.42 mill/uL (4.2-5.4); RED CELL DISTRIBUTION WIDTH 15.9 % (11.6-14.6)
[2021-11-16 11:40] VITALS: BP 120/67
[2021-11-17] MEDS ORDERED: ACET-2708 MT (18:15)
[2021-11-17] MEDS ORDERED: COR3 MT (18:15)
[2021-11-17] MEDS ORDERED: APIX2.5T MT (18:15)
[2021-11-17] MEDS ORDERED: FOLI1TAB63 MT (18:15)
== END 2021-11-16 11:45 | disposition home or self-care (01) | DRG 314 ==
LOC: ER 15:48 → EDBEDREQTM 11-13 23:07 → EDBEDREQ 11-13 23:07 → MICUSO 11-14 00:55 → 8WST 11-14 03:08
PROVIDERS: ADMIT Family Medicine; ATTEND Family Medicine
DX: T82.838A Hemorrhage due to vascular prosthetic devices, implants and grafts, initial encounter (principal); I50.43 Acute on chronic combined systolic (congestive) and diastolic (congestive) heart failure; N18.6 End stage renal disease; I13.2 Hypertensive heart and chronic kidney disease with heart failure and with stage 5 chronic kidney disease, or end stage renal disease; E87.1 Hypo-osmolality and hyponatremia; I48.20 Chronic atrial fibrillation, unspecified; E46 Unspecified protein-calorie malnutrition; K56.609 Unspecified intestinal obstruction, unspecified as to partial versus complete obstruction; G93.40 Encephalopathy, unspecified; T86.12 Kidney transplant failure; K40.90 Unilateral inguinal hernia, without obstruction or gangrene, not specified as recurrent; E11.22 Type 2 diabetes mellitus with diabetic chronic kidney disease; E78.5 Hyperlipidemia, unspecified; K74.60 Unspecified cirrhosis of liver; I25.10 Atherosclerotic heart disease of native coronary artery without angina pectoris; D63.1 Anemia in chronic kidney disease; F03.90 Unspecified dementia, unspecified severity, without behavioral disturbance, psychotic disturbance, mood disturbance, and anxiety; R13.10 Dysphagia, unspecified; Z99.2 Dependence on renal dialysis; Z68.20 Body mass index [BMI] 20.0-20.9, adult; Z86.73 Personal history of transient ischemic attack (TIA), and cerebral infarction without residual deficits; Z93.1 Gastrostomy status; Z79.4 Long term (current) use of insulin; Y83.0 Surgical operation with transplant of whole organ as the cause of abnormal reaction of the patient, or of later complication, without mention of misadventure at the time of the procedure; Y83.2 Surgical operation with anastomosis, bypass or graft as the cause of abnormal reaction of the patient, or of later complication, without mention of misadventure at the time of the procedure; Y92.89 Other specified places as the place of occurrence of the external cause
CPT/HCPCS: 36415; 71045; 80048; 80053; 85025; 99285; Q0163

== ENCOUNTER 2022-03-23 17:10 | Inpatient (IN) | payer MEDICARE, BC ==
[~2022-03-23] VITALS: Ht 154.9 cm; Wt 63.7 kg
[~2022-03-23 17:10] MED LIST changes: +ACET-2708 MT; +APIX5TAB MT; +COR3 MT; +DILT120C88 MT; +DIPH25CA83 PO; +DOCU-138 MT; +FOLI1TAB63 MT; +METO5TAB86 MT; +SENN-257 PO; +TOPUD MT; +ZOLP5TAB2 MT
[2022-03-23] MEDS ORDERED: SODIUM CHLORIDE 0.9% 1,000 ML IV ONE (17:15)
[2022-03-23 17:37] LABS: BG BASE EXCESS 8.7 mmol/L (-2.0-2.0); BG CARBOXYHEMOGLOBIN 1.3 % (0.5-1.5); BG DEOXYHEMOGLOBIN 1.6 % (0.0-5.0); BG FRACTION INSPIRED OXYGEN 21; BG HCO3 ACT 28.4 mmol/L (22.0-26.0); BG METHEMOGLOBIN 0.1 % (0.0-1.5); BG OXYGEN SATURATION 98.4 % (92.0-98.5); BG PCO2 24.3 mmHg (35.0-45.0); BG PH 7.686 (7.350-7.450); BG SAMPLE SITE RIGHT RADIAL; BG VENT MODE ROOM AIR
[2022-03-23 18:07] LABS: INR 1.1
[2022-03-23 23:33] LABS: BASOPHILS % 0.6 % (0.0-2.0); EOSINOPHILS % 0.9 % (0.0-5.0); HEMATOCRIT. 29.9 % (36.0-48.0); HEMOGLOBIN. 9.9 g/dL (12.0-16.0); LYMPHOCYTES % 10.4 % (20.0-50.0); MEAN CORPUSCULAR HEMOGLOBIN 29.6 pg (28.0-32.0); MEAN CORPUSCULAR VOLUME 89.7 fL (81.0-99.0); MEAN PLATELET VOLUME 9.2 fl (7.4-10.4); MONOCYTES % 12.7 % (2.0-8.0); NEUTROPHILS % 75.4 % (40.0-76.0); PLATELET 260 x1000/uL (130-400); RED BLOOD CELL COUNT 3.33 mill/uL (4.2-5.4)
[2022-03-23 23:41] LABS: CHLORIDE 91 mEq/L (98-107)
[2022-03-24 00:04] LABS: CREATINE KINASE 56 IU/L (26-192); ETHANOL BLOOD < 10 mg/dL
[2022-03-24] MEDS: LORAZEPAM 2MG/ML CPJ IV NR ×2 (08:54→09:04)
[2022-03-24] MEDS ORDERED: ONDANSETRON HCL 4MG/2ML INJ IV PRN (09:00)
[2022-03-24] MEDS ORDERED: ACETAMINOPHEN 325MG TABLET GT PRN (09:00)
[2022-03-24] MEDS ORDERED: IPRATROPIUM/ALBUTEROL 0.5-3(2.5)MG/3ML NEB HHN PRN (09:00)
[2022-03-24] MEDS ORDERED: DEXTROSE 50% WATER 50ML SYRINGE IV PRN (09:15)
[2022-03-24] MEDS: APIXABAN 2.5 MG TABLET GT SCH ×2 (09:30→17:00)
[2022-03-24 09:31] LABS: BG BASE EXCESS 6.7 mmol/L (-2.0-2.0); BG CARBOXYHEMOGLOBIN 1.3 % (0.5-1.5); BG FRACTION INSPIRED OXYGEN 21; BG HCO3 ACT 28.7 mmol/L (22.0-26.0); BG METHEMOGLOBIN 0.3 % (0.0-1.5); BG OXYHEMOGLOBIN 95.4 % (94.0-97.0); BG PCO2 31.5 mmHg (35.0-45.0); BG PH 7.577 (7.350-7.450); BG PO2 78.2 mmHg (75.0-100.0); BG TOTAL HEMOGLOBIN 10.3 g/dL (12.0-18.0); BG VENT MODE ROOM AIR
[2022-03-24] MEDS ORDERED: IPRATROPIUM BROMIDE (0.02%) 0.5MG/2.5ML NEB HHN PRN (10:15)
[2022-03-24] MEDS ORDERED: ALBUTEROL (0.083%) 2.5MG/3ML NEB HHN PRN (10:15)
[2022-03-24 12:00] VITALS: BP 127/61
[2022-03-24] MEDS ORDERED: LYR25 MT (12:26)
[2022-03-24] MEDS: BLOOD SUGAR DIAGNOSTIC STRIP TEST SCH ×3 (12:40→21:00)
[2022-03-24] MEDS: INSULIN LISPRO 100 UNITS/ML SUBCUT SCH ×3 (13:10→21:00)
[2022-03-24] MEDS: LACTULOSE 20G/30ML UDC PO SCH ×2 (13:43→21:22)
[2022-03-24 13:49] LABS: BASOPHILS % 0.5 % (0.0-2.0); EOSINOPHILS % 0.6 % (0.0-5.0); HEMATOCRIT. 31.2 % (36.0-48.0); HEMOGLOBIN. 10.3 g/dL (12.0-16.0); LYMPHOCYTES % 7.8 % (20.0-50.0); MEAN CORPUSCULAR HEMOGLOBIN 29.9 pg (28.0-32.0); MEAN CORPUSCULAR VOLUME 90.2 fL (81.0-99.0); MEAN PLATELET VOLUME 9.7 fl (7.4-10.4); NEUTROPHILS % 82.1 % (40.0-76.0); PLATELET 259 x1000/uL (130-400); RED BLOOD CELL COUNT 3.46 mill/uL (4.2-5.4); RED CELL DISTRIBUTION WIDTH 15.5 % (11.6-14.6)
[2022-03-24 13:53] LABS: CHLORIDE 91 mEq/L (98-107)
[2022-03-24] MEDS: DEXT 5%/0.9% NACL 1,000 ML IV SCH (14:40)
[2022-03-24] MEDS: PANTOPRAZOLE SODIUM 40 MG/VIAL IV SCH (15:07)
[2022-03-24 16:00] VITALS: BP 122/62
[2022-03-24 16:07] LABS: TOTAL IRON BINDING CAPACITY 252 ug/dL (250-450)
[2022-03-24] MEDS ORDERED: APIXABAN 2.5 MG TABLET GT SCH (17:00)
[2022-03-24] MEDS ORDERED: MINERAL OIL ENEMA 133ML PR NR (17:00)
[2022-03-24 17:06] LABS: VITAMIN B12 SERUM 1857 pg/mL (211-911)
[2022-03-24 17:14] LABS: FOLIC ACID (FOLATE) SERUM > 20.00 ng/mL (>5.38)
[2022-03-24 18:10] LABS: FERRITIN 617 ng/mL (10-291)
[2022-03-24 18:15] LABS: FERRITIN 617 ng/mL (10-291)
[2022-03-24 18:21] LABS: HEPATITIS B SURFACE ANTIGEN NEGATIVE
[2022-03-24 20:00] VITALS: BP 125/56
[2022-03-24 21:29] LABS: HEPATITIS B SURFACE ANTIGEN NEGATIVE
[2022-03-25] VITALS (15 sets, daily range): BP systolic 101–145; BP diastolic 52–81
[2022-03-25] MEDS: DEXT 5%/0.9% NACL 1,000 ML IV SCH ×2 (01:40→18:24)
[2022-03-25] MEDS: LACTULOSE 20G/30ML UDC PO SCH ×3 (05:25→21:41)
[2022-03-25] MEDS: INSULIN LISPRO 100 UNITS/ML SUBCUT SCH ×4 (06:45→21:00)
[2022-03-25] MEDS: BLOOD SUGAR DIAGNOSTIC STRIP TEST SCH ×4 (06:45→21:00)
[2022-03-25 07:39] LABS: EOSINOPHILS % 1.8 % (0.0-5.0); HEMATOCRIT. 27.6 % (36.0-48.0); HEMOGLOBIN. 9.3 g/dL (12.0-16.0); LYMPHOCYTES % 11.1 % (20.0-50.0); MEAN PLATELET VOLUME 9.8 fl (7.4-10.4); MONOCYTES % 12.4 % (2.0-8.0); NEUTROPHILS % 73.7 % (40.0-76.0); PLATELET 262 x1000/uL (130-400); RED CELL DISTRIBUTION WIDTH 15.4 % (11.6-14.6)
[2022-03-25 07:45] LABS: CHLORIDE 94 mEq/L (98-107)
[2022-03-25 07:54] LABS: HDL CHOLESTEROL 40 mg/dL (40-59); LDL CHOLESTEROL 53 mg/dL (5-100)
[2022-03-25] MEDS: PANTOPRAZOLE SODIUM 40 MG/VIAL IV SCH (08:36)
[2022-03-25] MEDS: FOLIC ACID/VITAMIN B COMP W-C TABLET PO SCH (08:37)
[2022-03-25] MEDS: APIXABAN 2.5 MG TABLET GT SCH ×2 (08:37→17:00)
[2022-03-25] MEDS ORDERED: DIATRIZOATE MEGLUMINE 300ML INFUS BTL UR ONE (18:13)
[2022-03-25] MEDS ORDERED: DIATR MEGLU/DIATRIZOATE SOLN 30ML ONE (18:14)
[2022-03-25] MEDS ORDERED: EPOETIN ALFA-EPBX 4,000 UNIT/ML VIAL SUBCUT SCH (21:00)
[2022-03-26] VITALS: BP 158/63
[2022-03-26 04:00] VITALS: BP 136/56
[2022-03-26] MEDS: LACTULOSE 20G/30ML UDC PO SCH ×3 (05:59→22:00)
[2022-03-26] MEDS: BLOOD SUGAR DIAGNOSTIC STRIP TEST SCH ×4 (06:00→21:51)
[2022-03-26 06:36] LABS: BASOPHILS % 0.5 % (0.0-2.0); EOSINOPHILS % 1.1 % (0.0-5.0); HEMATOCRIT. 30.5 % (36.0-48.0); HEMOGLOBIN. 10.1 g/dL (12.0-16.0); LYMPHOCYTES % 12.7 % (20.0-50.0); MEAN CORPUSCULAR HEMOGLOBIN 29.8 pg (28.0-32.0); MEAN CORPUSCULAR VOLUME 90.1 fL (81.0-99.0); MEAN PLATELET VOLUME 9.5 fl (7.4-10.4); MONOCYTES % 11.5 % (2.0-8.0); NEUTROPHILS % 74.2 % (40.0-76.0); PLATELET 317 x1000/uL (130-400); RED BLOOD CELL COUNT 3.38 mill/uL (4.2-5.4); RED CELL DISTRIBUTION WIDTH 15.5 % (11.6-14.6)
[2022-03-26] MEDS: INSULIN LISPRO 100 UNITS/ML SUBCUT SCH ×4 (07:38→21:00)
[2022-03-26 08:00] VITALS: BP 128/55
[2022-03-26] MEDS: BISACODYL 5MG TABLET PO SCH ×2 (08:21→08:47)
[2022-03-26] MEDS: APIXABAN 2.5 MG TABLET GT SCH ×3 (08:21→16:02)
[2022-03-26] MEDS: FOLIC ACID/VITAMIN B COMP W-C TABLET PO SCH ×2 (08:21→08:47)
[2022-03-26] MEDS: PANTOPRAZOLE SODIUM 40 MG/VIAL IV SCH (08:47)
[2022-03-26] MEDS ORDERED: LORAZEPAM 2MG/ML CPJ IV NR (10:15)
[2022-03-26] MEDS: DEXT 5%/0.9% NACL 1,000 ML IV SCH (10:40)
[2022-03-26 12:00] VITALS: BP 132/59
[2022-03-26 16:00] VITALS: BP 131/60
[2022-03-26] MEDS: ACETAMINOPHEN 650MG/20.3ML UDC PEG PRN (16:03)
[2022-03-26 20:00] VITALS: BP 128/61
[2022-03-26 22:51] LABS: HEMATOCRIT 31.9 % (36.0-48.0); HEMOGLOBIN 10.6 g/dL (12.0-16.0)
[2022-03-27] VITALS: BP 130/62
[2022-03-27] MEDS: DEXT 5%/0.9% NACL 1,000 ML IV SCH ×2 (03:40→22:01)
[2022-03-27 04:00] VITALS: BP 140/70
[2022-03-27] MEDS: LACTULOSE 20G/30ML UDC PO SCH ×3 (05:35→22:00)
[2022-03-27] MEDS: BLOOD SUGAR DIAGNOSTIC STRIP TEST SCH ×4 (05:35→22:00)
[2022-03-27 05:57] LABS: BASOPHILS % 0.9 % (0.0-2.0); HEMOGLOBIN. 8.3 g/dL (12.0-16.0); LYMPHOCYTES % 10.9 % (20.0-50.0); MEAN CORPUSCULAR HEMOGLOBIN 30.1 pg (28.0-32.0); MEAN CORPUSCULAR VOLUME 90.8 fL (81.0-99.0); MONOCYTES % 11.8 % (2.0-8.0); NEUTROPHILS % 74.4 % (40.0-76.0); RED BLOOD CELL COUNT 2.75 mill/uL (4.2-5.4); RED CELL DISTRIBUTION WIDTH 15.6 % (11.6-14.6)
[2022-03-27 08:00] VITALS: BP 115/50
[2022-03-27] MEDS: INSULIN LISPRO 100 UNITS/ML SUBCUT SCH ×3 (08:10→21:00)
[2022-03-27] MEDS: PANTOPRAZOLE SODIUM 40 MG/VIAL IV SCH (08:30)
[2022-03-27] MEDS: BISACODYL 5MG TABLET PO SCH (09:00)
[2022-03-27] MEDS: FOLIC ACID/VITAMIN B COMP W-C TABLET PO SCH (09:00)
[2022-03-27 10:04] LABS: MEAN PLATELET VOLUME 9.9 fl (7.4-10.4); PLATELET 306 x1000/uL (130-400)
[2022-03-27 12:00] VITALS: BP 115/57
[2022-03-27] MEDS ORDERED: POLYMYXIN B SULFATE 500000 UNITS/VIAL ONE ×2 (13:25→13:26)
[2022-03-27] MEDS ORDERED: LIDOCAINE HCL 1% 20ML VIAL (Pyxis) INJ ONE (13:26)
[2022-03-27] MEDS ORDERED: THROMBIN (BOVINE) 5000 UNITS/VIAL TOP ONE (13:26)
[2022-03-27] MEDS ORDERED: BACITRACIN 15GM TUBE TOP ONE (13:27)
[2022-03-27] MEDS ORDERED: LIDOCAINE HCL 1% 10 MG/ML 10ML VIAL ONE (15:03)
[2022-03-27] MEDS ORDERED: FENTANYL CITRATE/PF 50MCG/ML 2ML VIAL ONE (15:07)
[2022-03-27] MEDS ORDERED: HEPARIN SODIUM 1,000 UNIT/1ML VIAL IV ONE (15:37)
[2022-03-27] MEDS ORDERED: ONDANSETRON HCL 4MG/2ML INJ IV PRN (16:30)
[2022-03-27] MEDS ORDERED: LABETALOL 5MG/ML SYR 20 MG/4 ML SYRINGE IV PRN (16:30)
[2022-03-27] MEDS ORDERED: MEPERIDINE HCL/PF 25MG/ML CPJ IV PRN (16:30)
[2022-03-27] MEDS ORDERED: HYDROMORPHONE HCL/PF 2MG/ML CPJ IV PRN (16:30)
[2022-03-27 20:00] VITALS: BP 122/63
[2022-03-28] VITALS (11 sets, daily range): BP systolic 108–144; BP diastolic 46–59
[2022-03-28] MEDS: ACETAMINOPHEN 650MG/20.3ML UDC PEG PRN (04:04)
[2022-03-28] MEDS: LACTULOSE 20G/30ML UDC PO SCH (05:22)
[2022-03-28] MEDS: BLOOD SUGAR DIAGNOSTIC STRIP TEST SCH ×4 (07:07→20:45)
[2022-03-28] MEDS: INSULIN LISPRO 100 UNITS/ML SUBCUT SCH ×4 (08:10→20:45)
[2022-03-28] MEDS: FOLIC ACID/VITAMIN B COMP W-C TABLET PO SCH (09:04)
[2022-03-28] MEDS: BISACODYL 5MG TABLET PO SCH (09:04)
[2022-03-28] MEDS: PANTOPRAZOLE SODIUM 40 MG/VIAL IV SCH (09:04)
[2022-03-28] MEDS ORDERED: NALOXONE HCL 0.4MG/ML VIAL IV PRN (15:00)
[2022-03-28] MEDS: HYDROCODONE/ACETAMINOPHEN 5/325MG TABLET PO PRN ×2 (15:13→20:28)
[2022-03-28] MEDS ORDERED: LOPERAMIDE HCL 2MG CAPSULE PO PRN (16:45)
[2022-03-28] MEDS ORDERED: EPOETIN ALFA-EPBX 4,000 UNIT/ML VIAL SUBCUT SCH (21:00)
[2022-03-29] VITALS (10 sets, daily range): BP systolic 115–157; BP diastolic 47–91
[2022-03-29] MEDS: HYDROCODONE/ACETAMINOPHEN 5/325MG TABLET PO PRN ×2 (05:19→21:54)
[2022-03-29] MEDS: BLOOD SUGAR DIAGNOSTIC STRIP TEST SCH ×4 (05:23→20:29)
[2022-03-29 07:12] LABS: BASOPHILS % 0.3 % (0.0-2.0); EOSINOPHILS % 2.4 % (0.0-5.0); LYMPHOCYTES % 9.8 % (20.0-50.0); MEAN CORPUSCULAR HEMOGLOBIN 29.2 pg (28.0-32.0); MEAN CORPUSCULAR VOLUME 89.7 fL (81.0-99.0); MONOCYTES % 12.1 % (2.0-8.0); NEUTROPHILS % 75.4 % (40.0-76.0); PLATELET 278 x1000/uL (130-400); RED BLOOD CELL COUNT 2.23 mill/uL (4.2-5.4); RED CELL DISTRIBUTION WIDTH 15.2 % (11.6-14.6)
[2022-03-29 07:37] LABS: HEMOGLOBIN. 6.5 g/dL (12.0-16.0)
[2022-03-29] MEDS: INSULIN LISPRO 100 UNITS/ML SUBCUT SCH ×4 (08:06→20:29)
[2022-03-29 08:20] LABS: CHLORIDE 106 mEq/L (98-107)
[2022-03-29 08:25] LABS: HEPATITIS B SURFACE ANTIGEN NEGATIVE
[2022-03-29] MEDS: APIXABAN 2.5 MG TABLET PO SCH ×2 (08:32→16:52)
[2022-03-29] MEDS: FOLIC ACID/VITAMIN B COMP W-C TABLET PO SCH (08:36)
[2022-03-29] MEDS ORDERED: ACETAMINOPHEN 650MG/20.3ML UDC PO PRN (19:45)
[2022-03-29] MEDS: DIPHENHYDRAMINE 50MG/ML VIAL IV PRN (22:54)
[2022-03-30] VITALS (18 sets, daily range): BP systolic 113–198; BP diastolic 54–108
[2022-03-30] MEDS: HYDROCODONE/ACETAMINOPHEN 5/325MG TABLET PO PRN ×2 (05:04→10:46)
[2022-03-30] MEDS: DIPHENHYDRAMINE 50MG/ML VIAL IV PRN (05:40)
[2022-03-30] MEDS: BLOOD SUGAR DIAGNOSTIC STRIP TEST SCH ×4 (06:44→20:32)
[2022-03-30 06:47] LABS: BASOPHILS % 0.4 % (0.0-2.0); EOSINOPHILS % 0.3 % (0.0-5.0); HEMATOCRIT. 32.1 % (36.0-48.0); HEMOGLOBIN. 10.4 g/dL (12.0-16.0); LYMPHOCYTES % 8.8 % (20.0-50.0); MEAN CORPUSCULAR VOLUME 89.2 fL (81.0-99.0); MEAN PLATELET VOLUME 9.7 fl (7.4-10.4); MONOCYTES % 11.1 % (2.0-8.0); NEUTROPHILS % 79.4 % (40.0-76.0); PLATELET 303 x1000/uL (130-400); RED BLOOD CELL COUNT 3.59 mill/uL (4.2-5.4); RED CELL DISTRIBUTION WIDTH 16.9 % (11.6-14.6)
[2022-03-30] MEDS: INSULIN LISPRO 100 UNITS/ML SUBCUT SCH ×4 (08:10→20:53)
[2022-03-30] MEDS: FOLIC ACID/VITAMIN B COMP W-C TABLET PO SCH (09:30)
[2022-03-30] MEDS: LORAZEPAM 0.5MG TABLET PO PRN (09:31)
[2022-03-30] MEDS ORDERED: HYDROCODONE/ACETAMINOPHEN 10/325MG TABLET PO PRN (10:45)
[2022-03-30] MEDS: CARVEDILOL 3.125 MG TABLET PO SCH ×2 (11:30→20:54)
[2022-03-30] MEDS: MORPHINE SULFATE 2 MG/ML CPJ (NOT FOR IM USE) IV PRN (11:42)
[2022-03-30 12:13] LABS: TOTAL IRON BINDING CAPACITY 280 ug/dL (250-450)
[2022-03-30 12:22] LABS: FOLIC ACID (FOLATE) SERUM >20 ng/mL ng/mL (>5.38); VITAMIN B12 SERUM >2000 pg/mL pg/mL (211-911)
[2022-03-30] MEDS: PREGABALIN 25MG CAPSULE PO SCH (14:00)
[2022-03-30 20:59] LABS: HEMATOCRIT 34.4 % (36.0-48.0)
[2022-03-30] MEDS ORDERED: SENNOSIDES/DOCUSATE SOD 8.6/50MG TABLET PO PRN (21:00)
[2022-03-31] VITALS (13 sets, daily range): BP systolic 97–124; BP diastolic 55–66
[2022-03-31] MEDS: BLOOD SUGAR DIAGNOSTIC STRIP TEST SCH ×4 (06:40→21:53)
[2022-03-31] MEDS: INSULIN LISPRO 100 UNITS/ML SUBCUT SCH ×4 (07:57→21:00)
[2022-03-31] MEDS: MORPHINE SULFATE 2 MG/ML CPJ (NOT FOR IM USE) IV PRN (09:42)
[2022-03-31 09:48] LABS: HEMATOCRIT. 30.6 % (36.0-48.0); MEAN CORPUSCULAR HEMOGLOBIN 29.3 pg (28.0-32.0); MEAN CORPUSCULAR VOLUME 89.8 fL (81.0-99.0); MEAN PLATELET VOLUME 10.6 fl (7.4-10.4); PLATELET 258 x1000/uL (130-400); RED BLOOD CELL COUNT 3.41 mill/uL (4.2-5.4); RED CELL DISTRIBUTION WIDTH 16.7 % (11.6-14.6)
[2022-03-31] MEDS: FOLIC ACID/VITAMIN B COMP W-C TABLET PO SCH (09:54)
[2022-03-31] MEDS: PREGABALIN 25MG CAPSULE PO SCH (09:54)
[2022-03-31] MEDS: CARVEDILOL 3.125 MG TABLET PO SCH ×2 (09:54→21:53)
[2022-03-31 10:26] LABS: PLATELET ESTIMATE NORMAL
[2022-03-31 12:33] LABS: HEMATOCRIT. 29.3 % (36.0-48.0); HEMOGLOBIN. 9.7 g/dL (12.0-16.0); MEAN CORPUSCULAR HEMOGLOBIN 29.7 pg (28.0-32.0); MEAN CORPUSCULAR VOLUME 89.8 fL (81.0-99.0); MEAN PLATELET VOLUME 10.3 fl (7.4-10.4); PLATELET 270 x1000/uL (130-400); RED BLOOD CELL COUNT 3.27 mill/uL (4.2-5.4); RED CELL DISTRIBUTION WIDTH 16.8 % (11.6-14.6)
[2022-03-31 12:58] LABS: PLATELET ESTIMATE NORMAL
[2022-03-31] MEDS ORDERED: SODIUM POLYSTYRENE SULFONATE 15 G/60 ML BOT PO NR (13:00)
[2022-03-31] MEDS ORDERED: LACTULOSE 20G/30ML UDC PO NR (13:00)
[2022-03-31] MEDS: CEFTRIAXONE 1,000 MG in DEXTROSE 5% WATER 50 ML IV SCH (13:24)
[2022-03-31] MEDS: DOXYCYCLINE HYCLATE 100MG CAPSULE PO SCH (16:37)
[2022-03-31] MEDS ORDERED: IPRATROPIUM/ALBUTEROL 0.5-3(2.5)MG/3ML NEB HHN SCH (18:00)
[2022-03-31] MEDS: IPRATROPIUM BROMIDE (0.02%) 0.5MG/2.5ML NEB HHN SCH (22:04)
[2022-03-31] MEDS: ALBUTEROL (0.083%) 2.5MG/3ML NEB HHN SCH (22:05)
[2022-04-01] VITALS (14 sets, daily range): BP systolic 98–118; BP diastolic 49–68
[2022-04-01] MEDS: IPRATROPIUM BROMIDE (0.02%) 0.5MG/2.5ML NEB HHN SCH ×4 (03:19→21:22)
[2022-04-01] MEDS: ALBUTEROL (0.083%) 2.5MG/3ML NEB HHN SCH ×4 (03:20→21:22)
[2022-04-01] MEDS: BLOOD SUGAR DIAGNOSTIC STRIP TEST SCH ×4 (07:40→21:36)
[2022-04-01 08:51] LABS: HEMATOCRIT. 33.8 % (36.0-48.0); HEMOGLOBIN. 10.6 g/dL (12.0-16.0); MEAN CORPUSCULAR HEMOGLOBIN 29.4 pg (28.0-32.0); MEAN CORPUSCULAR VOLUME 93.3 fL (81.0-99.0); RED BLOOD CELL COUNT 3.62 mill/uL (4.2-5.4); RED CELL DISTRIBUTION WIDTH 17.7 % (11.6-14.6)
[2022-04-01] MEDS: INSULIN LISPRO 100 UNITS/ML SUBCUT SCH ×4 (09:06→21:00)
[2022-04-01] MEDS: DOXYCYCLINE HYCLATE 100MG CAPSULE PO SCH ×2 (09:06→17:15)
[2022-04-01] MEDS: PREGABALIN 25MG CAPSULE PO SCH (09:06)
[2022-04-01] MEDS: CARVEDILOL 3.125 MG TABLET PO SCH ×2 (09:46→21:36)
[2022-04-01 09:50] LABS: NUCLEATED RED BLOOD CELLS 1 /100 WBC
[2022-04-01 09:51] LABS: PLATELET ESTIMATE NORMAL
[2022-04-01] MEDS: FOLIC ACID/VITAMIN B COMP W-C TABLET PO SCH (09:51)
[2022-04-01 10:10] LABS: MEAN PLATELET VOLUME 10.2 fl (7.4-10.4); PLATELET 257 x1000/uL (130-400)
[2022-04-01] MEDS: CEFTRIAXONE 1,000 MG in DEXTROSE 5% WATER 50 ML IV SCH (14:11)
[2022-04-02] VITALS: BP 103/51
[2022-04-02] MEDS: IPRATROPIUM BROMIDE (0.02%) 0.5MG/2.5ML NEB HHN SCH ×4 (03:27→21:46)
[2022-04-02] MEDS: ALBUTEROL (0.083%) 2.5MG/3ML NEB HHN SCH ×4 (03:27→21:46)
[2022-04-02 04:00] VITALS: BP 114/52
[2022-04-02] MEDS: BLOOD SUGAR DIAGNOSTIC STRIP TEST SCH ×4 (07:40→20:45)
[2022-04-02 08:00] VITALS: BP 111/51
[2022-04-02 08:08] LABS: HEMATOCRIT. 28.2 % (36.0-48.0); HEMOGLOBIN. 9.1 g/dL (12.0-16.0); MEAN CORPUSCULAR HEMOGLOBIN 29.2 pg (28.0-32.0); MEAN CORPUSCULAR VOLUME 89.9 fL (81.0-99.0); MEAN PLATELET VOLUME 10.2 fl (7.4-10.4); PLATELET 278 x1000/uL (130-400); RED BLOOD CELL COUNT 3.13 mill/uL (4.2-5.4)
[2022-04-02] MEDS: INSULIN LISPRO 100 UNITS/ML SUBCUT SCH ×4 (08:10→20:45)
[2022-04-02] MEDS: FOLIC ACID/VITAMIN B COMP W-C TABLET PO SCH (08:12)
[2022-04-02] MEDS: DIPHENHYDRAMINE 50MG/ML VIAL IV PRN (08:12)
[2022-04-02] MEDS: PREGABALIN 25MG CAPSULE PO SCH (08:13)
[2022-04-02] MEDS: CARVEDILOL 3.125 MG TABLET PO SCH ×2 (08:14→20:45)
[2022-04-02] MEDS: DOXYCYCLINE HYCLATE 100MG CAPSULE PO SCH ×2 (08:14→17:12)
[2022-04-02 09:28] LABS: NUCLEATED RED BLOOD CELLS 1 /100 WBC; PLATELET ESTIMATE NORMAL
[2022-04-02 12:00] VITALS: BP 96/48
[2022-04-02] MEDS: CEFTRIAXONE 1,000 MG in DEXTROSE 5% WATER 50 ML IV SCH (12:17)
[2022-04-02 16:00] VITALS: BP 99/48
[2022-04-02 20:00] VITALS: BP 110/53
[2022-04-03] VITALS (7 sets, daily range): BP systolic 93–146; BP diastolic 45–54
[2022-04-03] MEDS: IPRATROPIUM BROMIDE (0.02%) 0.5MG/2.5ML NEB HHN SCH ×4 (02:43→21:48)
[2022-04-03] MEDS: ALBUTEROL (0.083%) 2.5MG/3ML NEB HHN SCH ×4 (02:43→21:48)
[2022-04-03] MEDS: INSULIN LISPRO 100 UNITS/ML SUBCUT SCH ×4 (07:57→20:20)
[2022-04-03] MEDS: BLOOD SUGAR DIAGNOSTIC STRIP TEST SCH ×4 (07:57→20:20)
[2022-04-03] MEDS: FOLIC ACID/VITAMIN B COMP W-C TABLET PO SCH (09:37)
[2022-04-03] MEDS: DOXYCYCLINE HYCLATE 100MG CAPSULE PO SCH ×2 (09:37→17:10)
[2022-04-03] MEDS: PREGABALIN 25MG CAPSULE PO SCH (09:38)
[2022-04-03] MEDS: CARVEDILOL 3.125 MG TABLET PO SCH ×2 (09:38→20:42)
[2022-04-03] MEDS: DIPHENHYDRAMINE 50MG/ML VIAL IV PRN (09:42)
[2022-04-03] MEDS: APIXABAN 2.5 MG TABLET PO SCH ×2 (09:44→17:10)
[2022-04-03] MEDS: CEFTRIAXONE 1,000 MG in DEXTROSE 5% WATER 50 ML IV SCH (12:34)
[2022-04-04] VITALS (16 sets, daily range): BP systolic 92–122; BP diastolic 49–73
[2022-04-04] MEDS: ALBUTEROL (0.083%) 2.5MG/3ML NEB HHN SCH ×3 (03:07→15:43)
[2022-04-04] MEDS: LORAZEPAM 0.5MG TABLET PO PRN (03:08)
[2022-04-04] MEDS: IPRATROPIUM BROMIDE (0.02%) 0.5MG/2.5ML NEB HHN SCH ×3 (03:08→15:43)
[2022-04-04] MEDS: BLOOD SUGAR DIAGNOSTIC STRIP TEST SCH ×3 (06:56→17:33)
[2022-04-04] MEDS: INSULIN LISPRO 100 UNITS/ML SUBCUT SCH ×3 (07:42→17:33)
[2022-04-04] MEDS: CARVEDILOL 3.125 MG TABLET PO SCH (09:00)
[2022-04-04] MEDS: APIXABAN 2.5 MG TABLET PO SCH ×2 (09:00→16:12)
[2022-04-04] MEDS: FOLIC ACID/VITAMIN B COMP W-C TABLET PO SCH (09:39)
[2022-04-04] MEDS: PREGABALIN 25MG CAPSULE PO SCH (09:39)
[2022-04-04] MEDS: DOXYCYCLINE HYCLATE 100MG CAPSULE PO SCH ×2 (09:40→16:12)
[2022-04-04] MEDS: CEFTRIAXONE 1,000 MG in DEXTROSE 5% WATER 50 ML IV SCH (16:12)
[2022-04-04] MEDS: DIPHENHYDRAMINE 50MG/ML VIAL IV PRN (16:13)
[2022-04-04] MEDS ORDERED: EPOETIN ALFA-EPBX 4,000 UNIT/ML VIAL SUBCUT SCH (21:00)
== END 2022-04-04 20:37 | disposition home health service (06) | DRG 356 ==
LOC: EDBEDREQTM 17:19 → EDBEDREQ 17:19 → EDBEDREQSVC 17:19 → ER 17:49 → MICUSO 20:20 → EDBEDREQ 20:41 → EDBEDREQTM 20:41 → 7WST 03-24 09:53
PROVIDERS: ADMIT Family Medicine; ATTEND Family Medicine
PROC: 5A1D70Z Performance of Urinary Filtration, Intermittent, Less than 6 Hours Per Day (ICD-10-PCS; 2022-03-25)
PROC: 03160ZD Bypass Left Axillary Artery to Upper Arm Vein, Open Approach (ICD-10-PCS; principal; 2022-03-27)
PROC: 05L80ZZ Occlusion of Left Axillary Vein, Open Approach (ICD-10-PCS; 2022-03-27)
PROC: 5A1D70Z Performance of Urinary Filtration, Intermittent, Less than 6 Hours Per Day (ICD-10-PCS; 2022-03-28)
PROC: 30233N1 Transfusion of Nonautologous Red Blood Cells into Peripheral Vein, Percutaneous Approach (ICD-10-PCS; 2022-03-29)
PROC: 5A1D70Z Performance of Urinary Filtration, Intermittent, Less than 6 Hours Per Day (ICD-10-PCS; 2022-03-30)
PROC: 5A1D70Z Performance of Urinary Filtration, Intermittent, Less than 6 Hours Per Day (ICD-10-PCS; 2022-03-31)
PROC: 5A1D70Z Performance of Urinary Filtration, Intermittent, Less than 6 Hours Per Day (ICD-10-PCS; 2022-04-01)
PROC: 5A1D70Z Performance of Urinary Filtration, Intermittent, Less than 6 Hours Per Day (ICD-10-PCS; 2022-04-04)
DX: K94.23 Gastrostomy malfunction (principal); A41.50 Gram-negative sepsis, unspecified; E43 Unspecified severe protein-calorie malnutrition; N18.6 End stage renal disease; J18.9 Pneumonia, unspecified organism; R65.20 Severe sepsis without septic shock; I13.2 Hypertensive heart and chronic kidney disease with heart failure and with stage 5 chronic kidney disease, or end stage renal disease; N39.0 Urinary tract infection, site not specified; E44.1 Mild protein-calorie malnutrition; I48.20 Chronic atrial fibrillation, unspecified; N13.30 Unspecified hydronephrosis; I67.82 Cerebral ischemia; T86.12 Kidney transplant failure; I50.22 Chronic systolic (congestive) heart failure; F03.911 Unspecified dementia, unspecified severity, with agitation; D62 Acute posthemorrhagic anemia; Z20.822 Contact with and (suspected) exposure to COVID-19; D63.8 Anemia in other chronic diseases classified elsewhere; K83.8 Other specified diseases of biliary tract; E11.22 Type 2 diabetes mellitus with diabetic chronic kidney disease; E78.5 Hyperlipidemia, unspecified; K74.60 Unspecified cirrhosis of liver; R62.7 Adult failure to thrive; I45.10 Unspecified right bundle-branch block; B96.20 Unspecified Escherichia coli [E. coli] as the cause of diseases classified elsewhere; K59.00 Constipation, unspecified; L50.9 Urticaria, unspecified; I25.10 Atherosclerotic heart disease of native coronary artery without angina pectoris; G89.29 Other chronic pain; Z68.26 Body mass index [BMI] 26.0-26.9, adult; Z99.2 Dependence on renal dialysis; Z74.01 Bed confinement status; Z90.49 Acquired absence of other specified parts of digestive tract; Z86.73 Personal history of transient ischemic attack (TIA), and cerebral infarction without residual deficits; Y92.89 Other specified places as the place of occurrence of the external cause; Y83.0 Surgical operation with transplant of whole organ as the cause of abnormal reaction of the patient, or of later complication, without mention of misadventure at the time of the procedure; Y73.1 Therapeutic (nonsurgical) and rehabilitative gastroenterology and urology devices associated with adverse incidents; R58 Hemorrhage, not elsewhere classified
CPT/HCPCS: 36415; 36600; 71045; 74018; 74176; 76700; 76770; 80048; 80053; 80061; 80076; 80307; 80320; 80329; 82375; 82550; 82607; 82728; 82746; 82805; 82962; 83036; 83540; 83550; 83605; 83880; 84145; 84443; 84484; 85014; 85018; 85025; 85044; 86705; 86709; 86803; 86850; 86900; 86920; 87340; 87426; 87804; 90935; 93005; 94640; 99291; C1768; C1893; C9113; J0696; J0885; J1170; J1200; J1644; J1815; J2060; J2270; J2405; J3010; J3490; J7030; J7042; J7060; P9016; Q9958; Q9963; G0480